=== PATIENT | female | born 1940 | race Two or more races ===

== ENCOUNTER 2017-10-01 09:58 | Outpatient (CLI) | payer OTHER ==
[~2017-10-01 09:58] MED LIST: ASPIR 8181 MG PO; CARVEDILOL12.5 MG PO; CARVEDILOL25 MG; COZAAR100 MG; DOLOGESIC CAPSU1 CAP PO; FLUOXETINE HCL20 MG; JANUMET 50-5001 EACH PO; JANUMET 50-501 UDTAB; NORVASC2.5 M1 PO; PROZAC40 MG PO; SIMVASTATIN40 MG; SULFAMETHOXAZOL1 TA5; ZETIA10 MG; ZETIA10 MG PO; ZYNCOF 20-400120 ML PO
== END 2017-10-01 12:05 | disposition home or self-care (01) ==
LOC: RAD 501 09:58
DX: M17.0 Bilateral primary osteoarthritis of knee (principal)

== ENCOUNTER 2017-10-01 10:07 | Outpatient (CLI) | payer OTHER | END 2017-10-01 13:46 | disposition home or self-care (01) | LOC: RAD 501 10:07 | DX: J98.4 Other disorders of lung (principal) ==

== ENCOUNTER → 2017-11-02 | Outpatient (CLI) | payer OTHER | END | disposition home or self-care (01) | LOC: NUCLEAR 11:00 | DX: I65.29 Occlusion and stenosis of unspecified carotid artery (principal); I10 Essential (primary) hypertension ==

== ENCOUNTER 2017-12-16 13:57 | Outpatient (CLI) | payer OTHER | END 2017-12-16 14:25 | disposition home or self-care (01) | LOC: NUCLEAR 13:57 | DX: M81.0 Age-related osteoporosis without current pathological fracture (principal) ==

== ENCOUNTER 2018-02-08 11:33 | Outpatient (CLI) | payer OTHER ==
[~2018-02-08] VITALS: Ht 167.6 cm; Wt 83.5 kg
== END 2018-02-08 11:50 | disposition home or self-care (01) ==
LOC: OFIC 805 11:33
DX: R22.1 Localized swelling, mass and lump, neck (principal); K14.6 Glossodynia

== ENCOUNTER 2018-02-17 09:28 | Outpatient (CLI) | payer OTHER | END 2018-02-17 15:50 | disposition home or self-care (01) | LOC: TOM 09:28 | DX: R22.1 Localized swelling, mass and lump, neck (principal) | CPT/HCPCS: 70491; Q9965 ==

== ENCOUNTER 2019-02-18 15:15 | Emergency (ER) | payer OTHER ==
[~2019-02-18] VITALS: Ht 165.1 cm; Wt 72.6 kg
== END 2019-02-18 17:59 | disposition home or self-care (01) ==
LOC: ER 15:15
DX: L03.116 Cellulitis of left lower limb (principal); L03.115 Cellulitis of right lower limb

== ENCOUNTER 2019-06-21 11:53 | Emergency (ER) | payer OTHER ==
[~2019-06-21] VITALS: Ht 165.1 cm; Wt 74.8 kg
== END 2019-06-21 17:53 | disposition home or self-care (01) ==
LOC: ER 11:53
DX: S00.83XA Contusion of other part of head, initial encounter (principal); R55 Syncope and collapse; W18.09XA Striking against other object with subsequent fall, initial encounter; Y93.89 Activity, other specified; Y92.018 Other place in single-family (private) house as the place of occurrence of the external cause; Y99.8 Other external cause status

== ENCOUNTER 2019-09-04 14:18 | Emergency (ER) | payer OTHER ==
[~2019-09-04] VITALS: Ht 157.5 cm; Wt 72.6 kg
[2019-09-04] MEDS ORDERED: BACTRIM 400-801 EACH PO (19:22)
== END 2019-09-04 19:38 | disposition home or self-care (01) ==
LOC: ER 14:18
DX: R60.0 Localized edema (principal); N39.0 Urinary tract infection, site not specified

== ENCOUNTER 2020-12-20 15:26 | Emergency (ER) | payer OTHER ==
[~2020-12-20] VITALS: Ht 165.1 cm; Wt 59.0 kg
[~2020-12-20 15:26] MED LIST changes: +BACTRIM 400-801 EACH PO
[2020-12-20] MEDS ORDERED: SYNTHROID50 MCG PO (16:11)
[2020-12-20] MEDS ORDERED: CLONAZEPAM1 MG PO (16:12)
== END 2020-12-20 22:51 | disposition home or self-care (01) ==
LOC: ER 15:26
DX: R10.13 Epigastric pain (principal)

== ENCOUNTER 2021-02-26 10:48 | Emergency (ER) | payer OTHER ==
[~2021-02-26] VITALS: Ht 157.5 cm; Wt 59.0 kg
[~2021-02-26 10:48] MED LIST changes: +CLONAZEPAM1 MG PO; +SYNTHROID50 MCG PO
[2021-02-26] MEDS ORDERED: PANTOPRAZOLE SO40 M2 PO (11:00)
[2021-02-26] MEDS ORDERED: TRAZODONE HCL150 MG PO (11:00)
== END 2021-02-26 16:53 | disposition home or self-care (01) ==
LOC: ER 10:48
DX: S13.8XXA Sprain of joints and ligaments of other parts of neck, initial encounter (principal); R55 Syncope and collapse; R07.0 Pain in throat; R05 Cough; W18.39XA Other fall on same level, initial encounter; Y93.E1 Activity, personal bathing and showering; Y92.012 Bathroom of single-family (private) house as the place of occurrence of the external cause; Y99.8 Other external cause status; Z03.818 Encounter for observation for suspected exposure to other biological agents ruled out